=== PATIENT | male | born 1940 | race Caucasian/White ===

== ENCOUNTER 2020-03-24 07:27 | Day surgery (SDC) | payer OTHER ==
[~2020-03-24] VITALS: Ht 193 cm; Wt 100.7 kg
[2020-03-24] VITALS (22 sets, daily range): BP systolic 119–174; BP diastolic 57–80
[~2020-03-24 07:27] MED LIST: AEC81 PO; ATOR40TA71 PO; CYAN50008 PO; GABA600T10 PO; HYDR-4153 PO; HYDR25TA PO; LISI40TA4 PO; LORA10TA7 PO; METF-445 PO; METO25TA6 PO; MULT-1203 PO; TAMS-1 PO
[2020-03-24] MEDS ORDERED: IOHEXOL-350 50ML VIAL IV ONE (07:40)
[2020-03-24] MEDS ORDERED: SODIUM CHLORIDE 0.9% 1000ML 1,000 ML IV ONE (08:19)
[2020-03-24] MEDS ORDERED: PROPOFOL 10 MG/ML 20ML VIAL IV ONE ×2 (09:07→10:37)
[2020-03-24] MEDS ORDERED: LIDOCAINE HCL 2% 20ML ONE (09:07)
[2020-03-24] MEDS ORDERED: INDOMETHACIN 50 MG SUPP.RECT RC SCH (09:15)
[2020-03-24] MEDS ORDERED: MEPERIDINE-PF 25 MG/ML SYG ONE (12:51)
== END 2020-03-24 13:15 | disposition home or self-care (01) ==
LOC: ENDO 07:27 → DAH 07:27 → ENDO 13:15
PROVIDERS: ATTEND Internal Medicine
DX: Z46.59 Encounter for fitting and adjustment of other gastrointestinal appliance and device (principal); C22.1 Intrahepatic bile duct carcinoma; I10 Essential (primary) hypertension; I25.10 Atherosclerotic heart disease of native coronary artery without angina pectoris; D64.9 Anemia, unspecified; E78.2 Mixed hyperlipidemia; E11.9 Type 2 diabetes mellitus without complications; F41.9 Anxiety disorder, unspecified; Z79.82 Long term (current) use of aspirin; Z95.0 Presence of cardiac pacemaker; Z98.890 Other specified postprocedural states; Z11.59 Encounter for screening for other viral diseases; Z79.899 Other long term (current) drug therapy; Z79.84 Long term (current) use of oral hypoglycemic drugs; Z88.8 Allergy status to other drugs, medicaments and biological substances; Z87.891 Personal history of nicotine dependence; Z72.89 Other problems related to lifestyle
CPT/HCPCS: 36415; 43264; 43273; 43276; 74328; 82948; A4215; A4221; A4222; A4223; A4606; A4649; A4657 ×2; A4663; C1769; C1773; C1874; C2625; J2175; J2704 ×2; J3490; J7030 ×2; Q9967; U0003; 74330

== ENCOUNTER 2020-05-08 07:50 | Day surgery (SDC) | payer OTHER ==
[2020-05-08] VITALS (18 sets, daily range): BP systolic 126–175; BP diastolic 64–83
[~2020-05-08] VITALS: Ht 193 cm; Wt 100.7 kg
[~2020-05-08 07:50] MED LIST changes: +DICY10CA13 PO; +FOLI20CA PO; +FURO20TA4 PO; +METR-172 PO; +SODIUM CHLORIDE 0.9% 1000ML 1,000 ML IV ONE; +TRAM50TA4 PO
[2020-05-08] MEDS ORDERED: INDOMETHACIN 50 MG SUPP.RECT RC SCH (09:00)
[2020-05-08] MEDS ORDERED: PROPOFOL 10 MG/ML 20ML VIAL IV ONE (11:13)
[2020-05-08] MEDS ORDERED: MIDAZOLAM HCL 1 MG/ML 2ML VIAL ONE (11:13)
[2020-05-08] MEDS ORDERED: NEOSTIGMINE 5MG/5ML SYR IV ONE (11:13)
[2020-05-08] MEDS ORDERED: ROCURONIUM 10MG/1ML SYR 10 MG/ML ML ONE (11:13)
[2020-05-08] MEDS ORDERED: GLYCOPYRROLATE 1 MG/5 ML SYRINGE ONE (11:13)
[2020-05-08] MEDS ORDERED: DEXAMETHASONE SOD PHOSPHATE 10MG/ML 1ML VIAL ONE (11:13)
[2020-05-08] MEDS ORDERED: ONDANSETRON HCL 4 MG/2 ML VIAL ONE ×2 (11:13→14:31)
[2020-05-08] MEDS ORDERED: LIDOCAINE PF 2% 5ML ABBOJECT ONE (11:13)
[2020-05-08] MEDS ORDERED: FENTANYL CITRATE PF 50 MCG/1 ML 2ML VIAL ONE (11:14)
[2020-05-08] MEDS ORDERED: IOHEXOL-350 50ML VIAL IV ONE (11:41)
[2020-05-08] MEDS ORDERED: MEPERIDINE-PF 25 MG/ML SYG ONE (14:15)
--- NOTE | 2020-05-08 15:20 | NUR ---
pain patient seemed anxious stated " i demand a prescription for hydrocodone " , informed him that he can resume tramadol and gabapentin at home . he stated "those don't work ". pt stated Dr Lilly needs to give me a prescription for hydrocodone. Dr. Lilly's office called ,spoke to Delma. she stated Dr. Lilly will call patient personally about his pain medication request for now to discharge patient home.
--- NOTE | 2020-05-08 15:45 | NUR ---
dc pt appeared in no distress upon discharge.
--- NOTE | 2020-05-08 15:45 | NUR ---
dc pt dc home via [facility], pt accompanied by [place] family friend. dc intructions reinforced to keep npo for 6 hrs then cld today. that patient cannot be left alone for 24 hrs post discharge, due to anesthesia. chinyere and patient verbalized understanding. pt instructed to keep his cell phone on hand since DR. Lilly will call him later today to discuss his pain medication request.
== END 2020-05-08 15:45 | disposition home or self-care (01) ==
LOC: ENDO 07:50 → DAH 07:50 → ENDO 15:45
PROVIDERS: ATTEND Internal Medicine
DX: C24.0 Malignant neoplasm of extrahepatic bile duct (principal); K83.1 Obstruction of bile duct; I25.10 Atherosclerotic heart disease of native coronary artery without angina pectoris; M19.90 Unspecified osteoarthritis, unspecified site; I10 Essential (primary) hypertension; E11.9 Type 2 diabetes mellitus without complications; F41.9 Anxiety disorder, unspecified; E78.5 Hyperlipidemia, unspecified; K57.30 Diverticulosis of large intestine without perforation or abscess without bleeding; D50.9 Iron deficiency anemia, unspecified; Z79.899 Other long term (current) drug therapy
CPT/HCPCS: 43264; 43276; 43278; 74330; 82948 ×2; 93005; A4215; A4221; A4222; A4223; A4606; A4649; A4657; A4663; C1769; C1773; C9803; J1100; J2001; J2175; J2405 ×2; J2704; J2710; J3490; J7030; Q9967; U0003; J2250; J3010